=== PATIENT | female | born 1995 | race Caucasian/White ===

== ENCOUNTER 2017-06-03 17:18 | Day surgery (SDC) | payer OTHER ==
[~2017-06-03] VITALS: Ht 149.9 cm; Wt 62.0 kg
[2017-06-03] MEDS ORDERED: SODIUM CHLORIDE FLUSH 10ML SYR IVF ONE (18:00)
[2017-06-03 18:52] LABS: ALBUMIN 4.5 g/dL (3.4-5.0); ANION GAP 12 mmol/L (5-15); CHLORIDE 106 mmol/L (98-107)
[2017-06-03 19:03] LABS: BASOPHILS # (AUTO) 0.05 x10^3/uL (0-0.3); BASOPHILS % (AUTO) 1 % (0-1); EOSINOPHILS # (AUTO) 0.14 x10^3/uL (0-0.8); EOSINOPHILS % (AUTO) 2 % (1-7); LYMPHOCYTES # (AUTO) 1.95 x10^3/uL (1-6.1); LYMPHOCYTES % (AUTO) 24 % (22-44); MD SCAN; MEAN CORPUSCULAR HEMOGLOBIN 31.6 pg (27.0-34.8); MEAN CORPUSCULAR HGB CONC 34.2 g/dL (32.4-35.8); MEAN CORPUSCULAR VOLUME 92.2 fL (80-100); MEAN PLATELET VOLUME 10.6 fL (7.4-10.4); MONOCYTES # (AUTO) 0.48 x10^3/uL (0-1.4); MONOCYTES % (AUTO) 6 % (2-9); NEUTROPHILS # (AUTO) 5.43 x10^3/uL (1.8-8.0); NEUTROPHILS % (AUTO) 67 % (42-75); PLATELET COUNT 225 x10^3/uL (130-400); RED BLOOD COUNT 4.76 x10^6/uL (3.82-5.3); RED CELL DISTRIBUTION WIDTH 12.5 % (9.6-15.2)
[2017-06-03 19:11] LABS: ALANINE AMINOTRANSFERASE 21 U/L (12-78); ALKALINE PHOSPHATASE 60 U/L (45-117); BILIRUBIN,TOTAL 0.9 mg/dL (0.2-1.0); TOTAL PROTEIN 8.4 g/dL (6.4-8.2)
[2017-06-03] MEDS ORDERED: SUCCINYLCHOLINE 20 MG/ML, 10ML ONE (20:45)
[2017-06-03] MEDS ORDERED: CEFAZOLIN 1,000 MG ONE (20:45)
[2017-06-03] MEDS ORDERED: PROPOFOL 10 MG/ML, 20ML ONE (20:45)
[2017-06-03] MEDS ORDERED: BUPIVACAINE/PF 0.5% ONE (20:45)
[2017-06-03] MEDS ORDERED: ONDANSETRON 2MG/ML, 2ML ONE (20:45)
[2017-06-03] MEDS ORDERED: DEXAMETHASONE 4 MG/ML, 1ML ONE (20:45)
[2017-06-03] MEDS ORDERED: EPINEPHRINE 1 MG/ML, 1ML ONE (20:46)
[2017-06-03 20:49] LABS: MICROSCOPIC NOT IND
[2017-06-03 20:55] LABS: CULTURE INDICATED? NO
[2017-06-03] MEDS ORDERED: LORazepam 2 MG/ML, 1ML IVPush PRN (21:00)
[2017-06-03] MEDS ORDERED: HYDROmorphone 1 MG/ML, 1ML IV PRN (21:00)
[2017-06-03] MEDS ORDERED: OXYcodone 5 MG/5 ML ORAL.SOL UDC PO PRN (21:00)
[2017-06-03] MEDS ORDERED: PROMETHAZINE 12.5 MG SUPP PR PRN (21:00)
[2017-06-03] MEDS ORDERED: morphine SULFATE 10 MG/ML, 1ML IV PRN (21:00)
[2017-06-03] MEDS ORDERED: PROMETHAZINE 25 MG/ML, 1ML IV PRN (21:00)
[2017-06-03] MEDS ORDERED: ALBUTEROL SULFATE 2.5 MG/3 ML NPPB PRN (21:00)
[2017-06-03] MEDS ORDERED: ACETAMINOPHEN 325 MG TABLET PO PRN (21:00)
[2017-06-03] MEDS ORDERED: BUPIVACAINE/PF 0.5% INFIL ONE (21:27)
[2017-06-03] MEDS ORDERED: EPINEPHRINE 1 MG/ML, 1ML INFIL ONE (21:28)
[2017-06-03] MEDS ORDERED: MEPERIDINE/PF 50 MG/ML ONE (21:49)
[2017-06-03] MEDS ORDERED: OXYcodone 5 MG/5 ML ORAL.SOL UDC ONE (21:49)
[2017-06-03] MEDS: MEPERIDINE/PF 25MG/0.5ML IVPush PRN ×2 (21:53→22:20)
[2017-06-03] MEDS ORDERED: FENTANYL PF 100 MCG/2ML ONE (22:11)
[2017-06-03] MEDS: FENTANYL PF 100 MCG/2ML IV PRN ×2 (22:11→22:25)
[2017-06-03] MEDS ORDERED: OXYC-302 PO (23:21)
[2017-06-03] MEDS ORDERED: IBUP-1222 PO (23:23)
[2017-06-03] MEDS ORDERED: OXYcodone/APAP 5/325MG TABLET PO PRN (23:30)
[2017-06-03] MEDS ORDERED: RHOGAM FROM BLOOD BANK 1 NOTE EA IM/IV ONE (23:30)
[2017-06-03] MEDS ORDERED: KETOROLAC 30 MG/1 ML IV PRN (23:30)
[2017-06-03 23:45] VITALS: BP 104/70
== END 2017-06-03 23:58 ==
LOC: OR 20:08 → 4NOR 22:35 → OR 22:35 → 4NOR 23:17 → OR 23:58
PROVIDERS: ATTEND Obstetrics & Gynecology
DX: O00.102 Left tubal pregnancy without intrauterine pregnancy (principal)
CPT/HCPCS: 36415; 59151; 80053; 81003; 84702; 85025; 86850; 86900; 88305; J0171; J0330; J0690; J1100; J1885; J2175; J2405; J2704; J2790; J3010; J3490

== ENCOUNTER → 2017-06-03 | Outpatient (CLI) | payer OTHER ==
[~2017-06-03] MED LIST: FENTANYL PF 250 MCG/5ML ONE; IBUP-1222 PO; MIDAZOLAM 1 MG/ML, 2ML ONE; OXYC-302 PO
== END ==
LOC: CFH 15:35
PROVIDERS: ATTEND Nurse Practitioner
DX: O00.90 Unspecified ectopic pregnancy without intrauterine pregnancy (principal); O26.891 Other specified pregnancy related conditions, first trimester; R19.09 Other intra-abdominal and pelvic swelling, mass and lump; Z3A.00 Weeks of gestation of pregnancy not specified
CPT/HCPCS: 76801; J2250; J3010